=== PATIENT | male | born 1965 | race Caucasian/White ===

== ENCOUNTER 2020-06-17 16:54 | Emergency (ER) | payer OTHER ==
[2020-06-17] MEDS ORDERED: Ketorolac 30 MG/ML SDV IVPUSH ONE (16:55)
[2020-06-17] MEDS ORDERED: Citric Acid/Sodium Citrate Solution 30 ML Cup PO ONE (16:55)
[2020-06-17] MEDS ORDERED: Midazolam 1 MG/ML 2 ML SDV IV ONE (16:55)
[2020-06-17] MEDS ORDERED: Propofol 200 MG/20 ML SDV IV ONE (16:55)
--- NOTE | 2020-06-17 17:57 | EDM.PDOC ---
ED HPI GENERAL MEDICAL PROBLEM - General Chief Complaint: Lower Extremity Injury/Pain Stated Complaint: left ankle injury Time Seen by Provider: 06/17/20 16:55 Source of Information: Reports: Patient, Family History Limitations: Reports: No Limitations - History of Present Illness INITIAL COMMENTS - FREE TEXT/NARRATIVE: Patient presented to the ED because of left ankle injury. He was trying to stop a pit bull who was attacking his dog and then twisted his left ankle. He was not able to ambulate and c/o 4/10 pain. Left Ankle Pain Score (Numeric/FACES): 5 - Related Data Allergies Allergy/AdvReac Type Severity Reaction Status Date / Time mold Allergy Itching Verified 06/17/20 17:12 Home Meds: Home Meds Lisinopril/Hydrochlorothiazide [Lisinopril-Hctz 20-25 mg Tab] 20 - 25 mg PO DAILY 06/17/20 [History] amLODIPine Besylate [Amlodipine Besylate] 10 mg PO DAILY 06/17/20 [History] atorvaSTATin [Lipitor] 10 mg PO DAILY 06/17/20 [History] metFORMIN [Glucophage XR] 500 mg PO BID 06/17/20 [History] Past Medical History Cardiovascular History: Reports: High Cholesterol, Hypertension Endocrine/Metabolic History: Reports: Diabetes, Type II, Other (See Below) Other Endocrine/Metabolic History: Pre-DM - Infectious Disease History Infectious Disease History: Reports: Chicken Pox, Other (See Below) Other Infectious Disease History: PNA - Past Surgical History HEENT Surgical History: Reports: Other (See Below) Other HEENT Surgeries/Procedures: wisdom tooth surgery Musculoskeletal Surgical History: Reports: Other (See Below) Other Musculoskeletal Surgeries/Procedures:: Sx with screws in place to left ring finger r/t fracture 7 yrs ago. Social & Family History - Family History Family Medical History: No Pertinent Family History - Caffeine Use Caffeine Use: Reports: Coffee - Recreational Drug Use Recreational Drug Use: No Review of Systems - Review of Systems Review Of Systems: See Below Constitutional: Reports: No Symptoms Eyes: Reports: No Symptoms Ears: Reports: No Symptoms Nose: Reports: No Symptoms Mouth/Throat: Reports: No Symptoms Respiratory: Reports: No Symptoms Cardiovascular: Reports: No Symptoms GI/Abdominal: Reports: No Symptoms Genitourinary: Reports: No Symptoms Musculoskeletal: Reports: Joint Pain, Joint Swelling Skin: Reports: No Symptoms Neurological: Reports: No Symptoms Psychiatric: Reports: No Symptoms ED EXAM, GENERAL - Physical Exam Exam: See Below Exam Limited By: No Limitations General Appearance: Alert, No Apparent Distress Eye Exam: Bilateral Eye: PERRL Ears: Normal External Exam, Normal Canal Nose: Normal Inspection, Normal Mucosa, No Blood Throat/Mouth: Normal Inspection, Normal Lips, Normal Teeth Head: Atraumatic, Normocephalic Neck: Normal Inspection, Supple, Non-Tender, Full Range of Motion Respiratory/Chest: No Respiratory Distress, Lungs Clear, Normal Breath Sounds Cardiovascular: Normal Peripheral Pulses, Regular Rate, Rhythm, No Edema, No Gallop, No JVD, No Murmur, No Rub GI/Abdominal: Normal Bowel Sounds, Soft, Non-Tender, No Organomegaly Back Exam: Normal Inspection, Full Range of Motion Extremities: Non-Tender, Joint Swelling, Other (deformity left ankle, neurovascular exam is intack) Neurological: Alert, Oriented, CN II-XII Intact, Normal Cognition Psychiatric: Normal Affect, Normal Mood Skin Exam: Warm, Dry, Normal Color Course - Vital Signs Text/Narrative:: Xray left ankle-see result Saline lock Case discuss with Dr Velazquez who recommended patient have reduction and then transfer to [place] ED Last Recorded V/S: Last Vital Signs Temp 36.6 C 06/17/20 16:54 Pulse 101 H 06/17/20 16:54 Resp 17 06/17/20 16:54 BP 159/80 H 06/17/20 16:54 Pulse Ox 100 06/17/20 16:54 Departure - Departure Time of Disposition: 18:00 Disposition: DC/Tfer to Acute Hospital 02 Condition: Good Clinical Impression: Ankle fracture, left, Ankle dislocation - Discharge Information Referrals: Heber Bowden MD [Primary Care Provider] - Forms: ED Department Discharge Sepsis Event Note (ED) - Evaluation Sepsis Screening Result: No Definite Risk - Focused Exam Vital Signs: Vital Signs Temp Pulse Resp BP Pulse Ox 06/17/20 16:54 36.6 C 101 H 17 159/80 H 100
--- NOTE | 2020-06-17 18:09 | CR ---
INDICATION: Left ankle injury. LEFT ANKLE: Three views of the left ankle were obtained 06/17/20 - no comparisons. Comminuted fracture sites are noted at the medial malleolus and the lateral malleolus with fracture through the posterior malleolus also present. Lateral offset of the talus with respect to the tibia is noted with lateral deviation measured at approximately 2 cm. Posterior offset of the posterior malleolus inferiorly is approximately 16 mm. There appears to be overriding and lateral offset of the lateral malleolar fracture fragment with anterior angulation at that fracture site. Normal bone density is noted. IMPRESSION: Trimalleolar fracture with severe subluxation. MTDD
--- NOTE | 2020-06-18 11:08 | CR ---
INDICATION: Post reduction single view. LEFT ANKLE: Single post reduction view in the AP projection was obtained 06/17/20 at 1916 hours and compared with 1713 hours of the same date. Less angulation is noted at the fibular fracture site, although separation of the fracture fragments is only slightly decreased. A bony fragment is suggested to be within the medial ankle joint mortise near the dome of the talus. There is a decrease in lateral offset of the talus with respect to the tibia. However, there remains a significant discrepancy with subluxation of the talus laterally. The lateral subluxation has decreased to approximately 8 mm compared with 20 mm on the previous study. MTDD
== END 2020-06-17 19:30 ==
LOC: FB.ED 16:54
DX: S82.852A Displaced trimalleolar fracture of left lower leg, initial encounter for closed fracture (principal); E78.00 Pure hypercholesterolemia, unspecified; I10 Essential (primary) hypertension; E11.9 Type 2 diabetes mellitus without complications; Z91.048 Other nonmedicinal substance allergy status; Z79.84 Long term (current) use of oral hypoglycemic drugs; Z79.899 Other long term (current) drug therapy; X50.1XXA Overexertion from prolonged static or awkward postures, initial encounter
CPT/HCPCS: 01462; 27840; 73600; 73610; 99284; A9270; J1885; J2250; J2704